=== PATIENT | female | born 1975 | race Caucasian/White ===

== ENCOUNTER 2017-02-02 14:47 | Observation (INO) | payer OTHER ==
[~2017-02-02] VITALS: Ht 170.2 cm; Wt 88.5 kg
[2017-02-02 16:45] LABS: HEMOGLOBIN 10.8 gm/dl (12.3-15.3); RED BLOOD COUNT 4.66 M/UL (4.00-5.10); WHITE BLOOD COUNT 6.9 K/UL (4.5-11.0)
[2017-02-02 17:00] LABS: BUN/CREATININE RATIO 16 (0-10)
[2017-02-03] MEDS ORDERED: PRILOSEC OTC20 MG PO ×2 (00:46→06:42)
[2017-02-03] MEDS ORDERED: TRICOR48 MG PO (00:46)
[2017-02-03] MEDS ORDERED: FOLIC ACID1 MG PO (00:47)
[2017-02-03] MEDS ORDERED: VISTARIL 25 MG25 MG PO (00:47)
[2017-02-03] MEDS ORDERED: SUBOXONE 8 MG-1 EACH CLAR (00:48)
[2017-02-03 06:08] LABS: HEMOGLOBIN 9.9 gm/dl (12.3-15.3); RED BLOOD COUNT 4.3 M/UL (4.00-5.10); WHITE BLOOD COUNT 5.7 K/UL (4.5-11.0)
[2017-02-03 06:33] LABS: BUN/CREATININE RATIO 15 (0-10)
[2017-02-03] MEDS ORDERED: CITALOPRAM HBR20 MG PO (06:39)
[2017-02-03] MEDS ORDERED: SUBOXONE 8 MG-1 EACH SL (06:39)
[2017-02-03] MEDS ORDERED: ABILIFY 5 MG TAB5 MG PO (06:41)
[2017-02-03] MEDS ORDERED: FOLIC ACID 1 MG1 MG PO (06:42)
[2017-02-03] MEDS ORDERED: KEPPRA250 MG PO (18:56)
== END 2017-02-03 20:03 | disposition home or self-care (01) ==
LOC: ER1 14:47 → MED SURG 4 18:39 → ZEROF 18:39 → MED SURG 4 20:42
PROVIDERS: Preventive Medicine Occupational Medicine; ADMIT Internal Medicine
DX: R56.9 Unspecified convulsions (principal); K21.9 Gastro-esophageal reflux disease without esophagitis; D50.9 Iron deficiency anemia, unspecified; E87.6 Hypokalemia; E87.2 Acidosis; G89.29 Other chronic pain; F41.9 Anxiety disorder, unspecified; Z87.891 Personal history of nicotine dependence; Z79.891 Long term (current) use of opiate analgesic; Z79.899 Other long term (current) drug therapy
CPT/HCPCS: 36415; 36600; 70450; 70553; 80053; 80307; 81001; 82150; 82550; 82553; 82607; 82728; 82803; 83540; 83550; 83605; 83690; 83735; 83874; 83880; 84439; 84443; 84484; 85025; 85610; 85730; 86140; 95819; 96365; 96375; 99285; A9577; G0378; G0480; J1953; J2060; J7030